=== PATIENT | male | born 1975 | race African-American/Black ===

== ENCOUNTER 2018-03-19 12:41 | Emergency (ER) | payer SELFPAY ==
[~2018-03-19] VITALS: Ht 188 cm; Wt 100.0 kg
[2018-03-19 13:20] VITALS: BP 138/72
== END 2018-03-19 14:34 | disposition left against medical advice (07) ==
LOC: ER 12:41 → EDBEDREQ 16:34 → ENRESERV 16:50 → CANRESERV 16:50 → CANBEDREQ 23:04
DX: R07.0 Pain in throat (principal); F15.10 Other stimulant abuse, uncomplicated
CPT/HCPCS: 99281

== ENCOUNTER 2018-06-16 01:11 | Emergency (ER) | payer SELFPAY ==
[~2018-06-16] VITALS: Ht 188 cm; Wt 100.0 kg
[2018-06-16] MEDS ORDERED: IBUPROFEN 600MG TABLET PO ONE (08:30)
[2018-06-16 10:14] VITALS: BP 120/76
== END 2018-06-16 10:15 | disposition home or self-care (01) ==
LOC: ER 01:11
DX: J02.9 Acute pharyngitis, unspecified (principal); F15.10 Other stimulant abuse, uncomplicated
CPT/HCPCS: 70360; 87070; 87430; 99284; Z7610

== ENCOUNTER 2018-10-06 08:17 | Emergency (ER) | payer MEDICAID, OTHER ==
[~2018-10-06] VITALS: Ht 188 cm; Wt 104.0 kg
[2018-10-06] MEDS ORDERED: METOCLOPRAMIDE HCL 10MG/2ML VIAL IM STA (08:56)
[2018-10-06] MEDS ORDERED: KETOROLAC 60MG/2ML VIAL IM STA (08:56)
[2018-10-06 09:09] LABS: BASOPHILS % 0.5 % (0.0-2.0); EOSINOPHILS % 2.6 % (0.0-5.0); HEMATOCRIT. 43.5 % (42.0-52.0); LYMPHOCYTES % 26.7 % (20.0-50.0); MEAN CORPUSCULAR HEMOGLOBIN 30.9 pg (28.0-32.0); MEAN CORPUSCULAR VOLUME 89.8 fL (80.0-94.0); MEAN PLATELET VOLUME 8.5 fl (7.4-10.4); MONOCYTES % 4.8 % (2.0-8.0); NEUTROPHILS % 65.4 % (40.0-76.0); PLATELET 241 x1000/uL (130-400); RED BLOOD CELL COUNT 4.84 mill/uL (4.7-6.1); RED CELL DISTRIBUTION WIDTH 13.6 % (11.6-14.6)
[2018-10-06 09:19] LABS: CHLORIDE 107 mEq/L (98-107)
[2018-10-06 09:57] LABS: CLARITY URINE CLEAR (CLEAR); COLOR URINE YELLOW (YELLOW); KETONES URINE TRACE (NEGATIVE); LEUKOCYTE ESTERASE URINE NEGATIVE (NEGATIVE); NITRITE URINE NEGATIVE (NEGATIVE); OCCULT BLOOD URINE NEGATIVE (NEGATIVE); PROTEIN URINE NEGATIVE (NEGATIVE)
[2018-10-06 10:15] LABS: *AMPHETAMINES SCREEN URINE NEGATIVE (NEGATIVE)
[2018-10-06 10:16] LABS: *BARBITURATES SCREEN URINE NEGATIVE (NEGATIVE); *BENZODIAZEPINES SCREEN URINE NEGATIVE (NEGATIVE); *COCAINE SCREEN URINE NEGATIVE (NEGATIVE); CANNABINOID URINE SCREEN PRESUMTIVE POSITIVE (NEGATIVE); OPIATES URINE SCREEN NEGATIVE (NEGATIVE); PHENCYCLIDINE URINE SCREEN NEGATIVE (NEGATIVE)
[2018-10-06 10:17] LABS: METHADONE URINE SCREEN NEGATIVE (NEGATIVE)
[2018-10-06] MEDS ORDERED: ACETAMINOPHEN WITH CODEINE 300/30MG TABLET PO STA (10:47)
[2018-10-06 12:54] VITALS: BP 118/67
== END 2018-10-06 13:00 | disposition home or self-care (01) ==
LOC: ER 08:17
DX: R51 Headache (principal); J32.9 Chronic sinusitis, unspecified; F12.10 Cannabis abuse, uncomplicated
CPT/HCPCS: 36415; 70450; 80048; 80305; 81003; 85025; 96372; 99284; J1885; J2765

== ENCOUNTER 2019-06-05 07:21 | Emergency (ER) | payer MEDICAID ==
[~2019-06-05] VITALS: Ht 188 cm; Wt 104.5 kg
[2019-06-05 08:00] VITALS: BP 126/83
== END 2019-06-05 10:00 | disposition left against medical advice (07) ==
LOC: ER 07:51
DX: J02.9 Acute pharyngitis, unspecified (principal); F17.200 Nicotine dependence, unspecified, uncomplicated; Z71.6 Tobacco abuse counseling
CPT/HCPCS: 99281; 99406

== ENCOUNTER 2021-05-12 01:35 | Emergency (ER) | payer MEDICAID ==
[~2021-05-12] VITALS: Ht 188 cm; Wt 98.0 kg
[2021-05-12] MEDS ORDERED: ASPIRIN 81MG TABLET PO ONE (02:30)
[2021-05-12] MEDS ORDERED: NITROGLYCERIN 0.4MG TABLET SL SL PRN (02:30)
[2021-05-12 03:14] LABS: BASOPHILS % 0.5 % (0.0-2.0); EOSINOPHILS % 2.4 % (0.0-5.0); HEMATOCRIT. 43.5 % (42.0-52.0); HEMOGLOBIN. 14.5 g/dL (14.0-18.0); LYMPHOCYTES % 40.3 % (20.0-50.0); MEAN CORPUSCULAR HEMOGLOBIN 30.4 pg (28.0-32.0); MEAN CORPUSCULAR VOLUME 91.3 fL (80.0-94.0); MEAN PLATELET VOLUME 8.6 fl (7.4-10.4); MONOCYTES % 5.4 % (2.0-8.0); NEUTROPHILS % 51.4 % (40.0-76.0); PLATELET 270 x1000/uL (130-400); RED BLOOD CELL COUNT 4.76 mill/uL (4.7-6.1); RED CELL DISTRIBUTION WIDTH 13.2 % (11.6-14.6)
[2021-05-12 03:22] LABS: CHLORIDE 108 mEq/L (98-107)
[2021-05-12 04:00] VITALS: BP 126/84
== END 2021-05-12 04:07 | disposition home or self-care (01) ==
LOC: ER 01:35 → EEVIPCON 01:35 → ER 04:07
DX: T43.621A Poisoning by amphetamines, accidental (unintentional), initial encounter (principal); R07.89 Other chest pain; F15.129 Other stimulant abuse with intoxication, unspecified; R03.0 Elevated blood-pressure reading, without diagnosis of hypertension; Y92.89 Other specified places as the place of occurrence of the external cause
CPT/HCPCS: 36415; 71045; 80053; 83880; 84484; 85025; 93005; 99285